=== PATIENT | female | born 1955 | race Caucasian/White ===

== ENCOUNTER 2017-12-03 06:42 | Emergency (ER) | payer OTHER ==
[~2017-12-03] VITALS: Ht 170.2 cm; Wt 95.3 kg
[2017-12-03 08:06] LABS: Basophils # (auto) 0 uL; Basophils % (auto) 0.2 % (0.0-2.0); Eosinophils # (auto) 0 uL; Hematocrit 48.5 % (36.0-46.0); Hemoglobin 16.7 g/dL (12.2-16.2); Lymphocytes # (auto) 1.1 uL; Lymphocytes % (auto) 10.8 % (10.0-50.0); Mean Corpuscular Hemoglobin 30.9 pg (28.0-32.0); Mean Corpuscular Hgb Conc. 34.3 g/dL (32.0-36.0); Mean Corpuscular Volume 90.1 fL (80.0-100.0); Monocytes # (auto) 0.2 uL; Monocytes % (auto) 2.3 % (0.0-12.0); Neutrophils # (auto) 8.8 uL; Neutrophils % (auto) 86.7 % (37.0-80.0); Nucleated Red Blood Cells % 0.2 %; Platelet Count (auto) 246 10^3/uL (140-450); Red Blood Cells 5.39 10^6/uL (4.0-5.20); Red Cell Distribution Width 14.1 % (11.8-14.3); White Blood Cell 10.1 10^3/uL (4.4-10.8)
[2017-12-03 08:26] LABS: INR 0.99 (0.9-1.15); Partial Thromboplastin Time 28.4 sec (22.64-33.71); Prothrombin Time 10.8 sec (9.37-12.3)
[2017-12-03 08:27] LABS: Alanine Aminotransferase 40 U/L (13-56); Alkaline Phosphatase 75 U/L (45-117); Anion Gap 12 (5-15); Aspartate Aminotransferase 30 U/L (15-37); BUN/Creatinine Ratio 13.9; Bilirubin, Total 0.5 mg/dL (0.2-1.0); Blood Urea Nitrogen 11 mg/dL (7-18); Calcium 9.5 mg/dL (8.5-10.1); Carbon Dioxide 20 mmol/L (21-32); Chloride 105 mmol/L (98-107); GFR African American 95 mL/min; GFR Non-African American 78 mL/min; Glucose 170 mg/dL (74-106); Potassium 3.8 mmol/L (3.5-5.1); Sodium 137 mmol/L (136-145); Total Protein 8.5 g/dL (6.4-8.2)
[2017-12-03 09:55] LABS: Urine Bacteria NONE SEEN /hpf (None Seen); Urine Blood Negative /uL (Negative); Urine Mucus FEW (None Seen); Urine Specific Gravity 1.025 (1.001-1.035); Urine WBC 4 /hpf (0 - 5)
[2017-12-03] MEDS ORDERED: SODIUM CHLORIDE 0.9% 1,000 ML IV ONE ×2 (10:00→11:56)
[2017-12-03] MEDS ORDERED: MORPHINE SULFATE 8mg/ml INJ SDV IV ONE (10:00)
[2017-12-03] MEDS ORDERED: ONDANSETRON HCL 4 MG/2 ML VIAL IV ONE (10:00)
[2017-12-03] MEDS ORDERED: KETOROLAC TROMETH 30 MG/ML 1ML VIAL ONE (11:58)
[2017-12-03] MEDS ORDERED: KETOROLAC TROMETH 30 MG/ML 1ML VIAL IV ONE (12:00)
[2017-12-03 12:07] VITALS: BP 190/89
[2017-12-03] MEDS ORDERED: cloNIDine HCL 0.1 MG TAB PO ONE (12:15)
== END 2017-12-03 13:00 | disposition home or self-care (01) ==
LOC: EDBD 06:42 → ER 06:46
DX: E86.0 Dehydration (principal); K52.9 Noninfective gastroenteritis and colitis, unspecified; Z90.49 Acquired absence of other specified parts of digestive tract
CPT/HCPCS: 36415; 74176; 80053; 81001; 81025; 84484; 85025; 85610; 85730; 96361; 96374; 96375; 99285; J1885; J2270; J2405; J7030